=== PATIENT | male | born 1955 | race Caucasian/White ===

== ENCOUNTER 2017-06-20 16:50 | Inpatient (IN) | payer OTHER, SELFPAY ==
--- NOTE | 2017-06-20 17:37 | RAD ---
PORTABLE CHEST 1 VIEW: Date: 06/20/17 Time: 1719 hours HISTORY: Chest pain. FINDINGS: Comparison made with exam of 01/13/17. There is continued elevation of the right hemidiaphragm. The heart size is prominent, but stable. Th e lungs are well expanded without confluent areas of consolidation, pneumothorax, or pleural effusio ns. There is no evidence of sagrario pulmonary edema. There are degenerative changes in the spine. IMPRESSION: No acute process. POS: [facility]
[2017-06-20] MEDS ORDERED: Nitroglycerin 2% Ointment 1 INCH/1 GM Packet ONE (17:48)
[2017-06-20] MEDS ORDERED: Aspirin 81 mg Enteric Coated Tablet ONE (17:48)
[2017-06-20 17:51] LABS: Troponin I Less than 0.010 ng/mL (< 0.028)
[2017-06-20 17:53] LABS: ALT (SGPT) 42 U/L (8-55); AST (SGOT) 102 U/L (5-34); Alkaline Phosphatase 214 U/L (40-150); Anion Gap 16 mmol/L (10-20); BUN (Urea Nitrogen) 26 mg/dL (8.4-25.7); Bilirubin, Total 0.8 mg/dL (0.2-1.2); CK (CPK) 42 U/L (30-200); Calc. Creatinine Clearance 0 mL/min (70-130); Calcium 9.5 mg/dL (7.8-10.44); Carbon Dioxide 23 mmol/L (23-31); Chloride 102 mmol/L (98-107); Estimated GFR-MDRD 45; Globulin 3.6 g/dL (2.4-3.5); Protein, Total 7.2 g/dL (5.8-8.1)
[2017-06-20 18:03] LABS: #Eosinphils 0.3 thou/uL (0.0-0.7); #Lymphocytes 2.3 thou/uL (1.20-3.40); #Neutrophils 6.6 thou/uL (1.40-6.50); %Basophils 0.3 % (0.0-1.0); %Eosinophils 3.2 % (0.0-10.0); %Monocytes 9.5 % (0.0-10.0); Hematocrit 38.4 % (42.0-52.0); Mean Platelet Volume 7.1 fL (7.4-10.4); Red Blood Cell (RBC) Count 4.47 mill/uL (4.70-6.10); White Blood Cell (WBC) Count 10.2 thou/uL (4.8-10.8)
[2017-06-20 18:18] LABS: Bilirubin Small (Negative); Blood, Urine Negative (Negative); Glucose, Urine (Dipstick) Negative (Negative); Ketone, Urine Negative (Negative); Nitrite Negative (Negative); Protein, Urine (Dipstick) 30 mg/dL (Neg-Trace)
[2017-06-20 18:23] LABS: Bacteria/HPF None Seen HPF (None Seen); Hyaline Casts/LPF 0-3 HYALINE CAST LPF (0-3 Hyaline); RBC/HPF 0-3 HPF (0-3); Squamous Epithelial 0-3 HPF (0-3); WBC/HPF 0-3 HPF (0-3)
[2017-06-20] MEDS ORDERED: Morphine 2 MG/ML SYRINGE SLOW IVP PRN (19:11)
[2017-06-20] MEDS ORDERED: Dextrose 50% Abboject 50 ML SYRINGE SLOW IVP PRN (19:56)
[2017-06-20] MEDS ORDERED: HumaLOG 300 UNITS/3 ML VIAL SC PRN (19:56)
[2017-06-20] MEDS ORDERED: Dextrose 5% in Water 1,000 ML IV PRN (19:56)
[2017-06-20] MEDS ORDERED: Bisacodyl 10 MG SUPP PR PRN (19:56)
[2017-06-20] MEDS ORDERED: Calcium Carbonate 500 MG ChewTAB PO PRN (19:56)
[2017-06-20] MEDS ORDERED: Ondansetron ODT 4 MG TAB SL PRN (19:56)
[2017-06-20] MEDS ORDERED: Ondansetron HCl/PF 4 MG/2 ML Vial IVP PRN ×2 (19:56)
[2017-06-20] MEDS ORDERED: Acetaminophen 650 MG Suppository PR PRN (19:56)
[2017-06-20] MEDS ORDERED: Acetaminophen 325 MG TAB PO PRN (19:56)
[2017-06-20 20:45] LABS: Troponin I Less than 0.010 ng/mL (< 0.028)
[2017-06-20] MEDS: Carvedilol 3.125 MG TAB PO SCH (21:00)
[2017-06-20] MEDS: Nitroglycerin 2% Ointment 1 INCH/1 GM Packet TOP SCH (21:00)
[2017-06-20] MEDS: Famotidine 20 MG TAB PO SCH (21:00)
[2017-06-20] MEDS: Sodium Chloride 0.9% 1,000 ML IV SCH (21:00)
[2017-06-20] MEDS: HYDROcodone/Acetaminophen 5/325 mg Tablet PO PRN (22:10)
[2017-06-20 23:25] LABS: Troponin I Less than 0.010 ng/mL (< 0.028)
--- NOTE | 2017-06-21 00:18 | HP ---
CHIEF COMPLAINT: Chest pain. HISTORY OF PRESENT ILLNESS: This is a 61-year-old pleasant gentleman who was apparently in usual surgical specialty center at [facility], at 3:00 p.m. this afternoon when he was post-lunch resting in his chair when he had c hest pain, which was like a pressure type sensation across his chest, intensity about 3/10 and laste d about for an hour. He says that it was not associated with nausea, vomiting or diaphoresis, but h e had some shortness of breath. He was concerned and he came into the hospital for further evaluati on and treatment. No fever, no chills, no diarrhea or dysuria. PAST MEDICAL HISTORY: Significant for diabetes, hypertension, and obesity. ALLERGIES: PENICILLIN. MEDICATIONS: Include metformin, lisinopril, Coreg, levothyroxine, liothyronine, lovastatin, and Cor eg. PAST SURGICAL HISTORY: Significant for nasal tumors x2. SOCIAL HISTORY: Denies smoking, drinking or recreational drugs. FAMILY HISTORY: Negative for diabetes and hypertension. REVIEW OF SYSTEMS: Significant for chest pain, otherwise no fever, no chills, no headache, no appet ite, no hearing loss, no latencies. No cough, no diarrhea, dysuria or polyuria. No memory or mood changes. No neck pain. PHYSICAL EXAMINATION: VITAL SIGNS: The patient's blood pressure is 150/89, pulse is 91, respirations 18, temperature afeb rile. GENERAL: The patient is lying in bed in no apparent distress. HEENT: Atraumatic, normocephalic. Pupils equally round, react to light. Extraocular movements int act. Mucous membranes moist. NECK: Supple. No JVD. CHEST: Breath sounds heard. No rales or rhonchi. HEART: S1, S2 normal. No murmurs or gallops. ABDOMEN: Soft. EXTREMITIES: No cyanosis, clubbing or edema. Distal pulses present. NEUROLOGIC: Alert, awake, oriented. No cranial deficits. No sensorimotor deficits. LABORATORY DATA: EKG shows no ST-T wave changes. Lipase is 17, hemoglobin is 12. WBC is 10. Trop onin 0.01. Potassium is 4, creatinine is 1.5, and AST is 102. Chest x-ray negative. ASSESSMENT AND PLAN: 1. Chest pain. We will do echocardiogram, trend troponins. Cardiology consult. Morphine p.r.n. f or pain. 2. Diabetes mellitus. We will put him on insulin sliding scale. 3. Hypertension. Coreg and p.r.n. hydralazine. 4. Hypothyroidism. We will continue home medications. 5. Obesity. He has been counseled. 6. Sequential compression devices for deep venous thrombosis prophylaxis. I will do the stress valarie t, monitor results, work with Cardiology, and do the need for.
[2017-06-21] MEDS: Nitroglycerin 2% Ointment 1 INCH/1 GM Packet TOP SCH (04:32)
[2017-06-21 05:15] LABS: #Eosinphils 0.2 thou/uL (0.0-0.7); #Lymphocytes 1.4 thou/uL (1.20-3.40); #Monocytes 0.5 thou/uL (0.11-0.59); %Basophils 0.5 % (0.0-1.0); %Eosinophils 2.4 % (0.0-10.0); %Lymphocytes 19.2 % (21.0-51.0); %Monocytes 7.4 % (0.0-10.0); Hematocrit 35.8 % (42.0-52.0); Mean Platelet Volume 7.1 fL (7.4-10.4); Red Blood Cell (RBC) Count 4.12 mill/uL (4.70-6.10); White Blood Cell (WBC) Count 7.1 thou/uL (4.8-10.8)
[2017-06-21 05:27] LABS: ALT (SGPT) 267 U/L (8-55); AST (SGOT) 357 U/L (5-34); Alkaline Phosphatase 286 U/L (40-150); Anion Gap 10 mmol/L (10-20); BUN (Urea Nitrogen) 25 mg/dL (8.4-25.7); Bilirubin, Total 3.2 mg/dL (0.2-1.2); Calc. Creatinine Clearance 92 mL/min (70-130); Calcium 9.3 mg/dL (7.8-10.44); Carbon Dioxide 30 mmol/L (23-31); Chloride 99 mmol/L (98-107); Estimated GFR-MDRD 44; Globulin 3.2 g/dL (2.4-3.5); Protein, Total 6.6 g/dL (5.8-8.1)
[2017-06-21] MEDS: Levothyroxine Sodium 100 MCG TAB PO SCH (05:49)
[2017-06-21] MEDS: Aspirin 325 MG TAB PO SCH (08:15)
[2017-06-21] MEDS: Famotidine 20 MG TAB PO SCH ×2 (08:15→20:45)
[2017-06-21] MEDS: Carvedilol 3.125 MG TAB PO SCH ×2 (12:05→20:45)
--- NOTE | 2017-06-21 13:15 | PDOC.PN ---
- Subjective Encounter Start Date: 06/21/17 Encounter Start Time: 13:13 had sharp back pain and e/o vomiting in night feels better had stress this am no f/c - Objective MAR Reviewed: Yes Vital Signs & Weight: Vital Signs (12 hours) Temp Pulse Resp BP BP Pulse Ox 06/21/17 12:00 71 16 178/88 H 95 06/21/17 08:10 99.2 F 78 18 06/21/17 07:45 99.2 F 78 18 159/79 H 93 L 06/21/17 03:50 99.1 F 74 20 159/75 H 96 Weight Weight 301 lb I&O: 06/20/17 06/21/17 06/22/17 06:59 06:59 06:59 Intake Total 996 Output Total 500 Balance 496 Result Diagrams: 06/21/17 03:57 06/21/17 03:57 Additional Labs: Accuchecks 06/20/17 20:22 POC Glucose 139 H Phys Exam - Physical Examination Constitutional: NAD HEENT: PERRLA Neck: no JVD Respiratory: no wheezing Cardiovascular: no significant murmur Gastrointestinal: non-tender Musculoskeletal: pulses present Neurological: moves all 4 limbs Psychiatric: A&O x 3 Dx/Plan (1) Chest pain Code(s): R07.9 - CHEST PAIN, UNSPECIFIED Status: Acute (2) Elevated LFTs Code(s): R79.89 - OTHER SPECIFIED ABNORMAL FINDINGS OF BLOOD CHEMISTRY Status : Acute (3) DM type 2 (diabetes mellitus, type 2) Status: Chronic (4) HTN (hypertension) Code(s): I10 - ESSENTIAL (PRIMARY) HYPERTENSION Status: Chronic Qualifiers: (5) Hypothyroidism Code(s): E03.9 - HYPOTHYROIDISM, UNSPECIFIED Status: Chronic Qualifiers: (6) Morbid obesity with BMI of 45.0-49.9, adult Code(s): E66.01 - MORBID (SEVERE) OBESITY DUE TO EXCESS CALORIES; Z68.42 - BODY MASS INDEX (BMI) 45.0-49.9, ADULT Status: Chronic - Plan * f/u lft and us abd * f/u stress result * card and gi rec's awaited
--- NOTE | 2017-06-21 14:19 | CON ---
DATE OF CONSULTATION: 06/21/2017 REASON FOR CONSULTATION: Chest pain. HISTORY OF PRESENT ILLNESS: Mr. White is a pleasant 61-year-old white gentleman, who comes to the [facility] for chest pain. He was sitting at home reading a book and felt sudden onset of chest tightn ess in the mid sternal area; it radiated to the right chest. He waited about an hour and a half bef ore decided to come into the hospital. By that time, the pain was better, and by the time he got he re, the pain was pretty much gone. He was admitted and ruled out with negative enzymes, and a stres s test was done earlier today, results are still pending. Currently, he remains chest pain free. Dayna tomlinson has had cardiac evaluations in the past. He has been told he might have had heart failure. Sever al years ago, he saw Dr. Dodge here in the office, unclear of exactly what happened; those record s have been purged since. Currently, he is doing quite well. PAST MEDICAL HISTORY: 1. Type 2 diabetes. 2. Hypertension. 3. Obesity. ALLERGIES: PENICILLIN. OUTPATIENT MEDICATIONS: Include: 1. Fish oil. 2. Carvedilol 6.25 mg b.i.d. 3. Lutein. 4. Vitamin. 5. PreserVision 6. Aspirin 325 a day. 7. Lovastatin 20 mg a day. 8. Ekhyiweneytc52.5 mcg a day. 9. Synthroid 200 mcg daily. 10. Lasix 80 mg a day. 11. Metformin 1000 mg b.i.d. 12. Potassium chloride 10 mEq b.i.d. ALLERGIES: PENICILLIN. SOCIAL HISTORY: No alcohol, tobacco, or drugs. PAST SURGICAL HISTORY: Removal nasal tumors twice in the past. FAMILY HISTORY: No early coronary artery disease. REVIEW OF SYSTEMS: Negative unless stated in the history of present illness. PHYSICAL EXAMINATION: VITAL SIGNS: Temperature 99.2, pulse 78, respiratory rate 18, satting at 95% on room air, blood pre ssure 178/88. GENERAL: Awake, alert, oriented x3, in no distress. HEENT: Normocephalic, atraumatic. NECK: Supple. LUNGS: Clear. CARDIOVASCULAR: S1, S2, no S3 or S4. No murmurs or rubs. ABDOMEN: Soft. Positive bowel sounds. EXTREMITIES: 1+ edema. SKIN: Warm and dry. LABORATORY WORK: Reviewed. White count of 10, hemoglobin of 12, hematocrit 38, platelet count of 2 30. Chemistries showed sodium of 137, BUN of 26, creatinine 1.5, GFR 45, glucose was 119. Troponin has been negative, undetectable actually x3; albumin of 3.6. His alkaline phosphatase was 214 on admission, up to 286, and his AST and ALT have increased since admission from 102 and 42 to 357 and 267 respectively. Total bilirubin now at 3.2; on admission, it was 0.8. Lipase was normal. UA was unremarkable. EKG was reviewed, nonspecific ST changes. Chest x-ray was unremarkable. ASSESSMENT AND PLAN: 1. Chest pain: We will wait for results of stress test to see if this is related to cardiac ischem ia. However, I doubt it. His presentation was born right-sided and he has abnormal LFTs. We will see what echocardiogram shows as well. 2. Agree with right upper quadrant ultrasound to make sure it is not a liver pathology or biliary p athology. 3. Further recommendations per results of abdominal testing and stress testing.
[2017-06-21 14:33] LABS: ALT (SGPT) 266 U/L (8-55); AST (SGOT) 232 U/L (5-34); Alkaline Phosphatase 320 U/L (40-150); Bilirubin, Direct 3.7 mg/dL (0.1-0.3); Bilirubin, Total 4.7 mg/dL (0.2-1.2); Protein, Total 6.7 g/dL (5.8-8.1)
[2017-06-21] MEDS: hydrALAZINE 20 MG/ML VIAL SLOW IVP PRN (16:39)
--- NOTE | 2017-06-21 16:44 | RAD ---
FRONTAL VIEW ABDOMINAL RADIOGRAPH SERIES KUB 06/21/17 INDICATION: Abdominal pain. FINDINGS: The upper abdomen and lung bases are excluded from view limiting assessment. Bowel gas pattern is no nspecific with retained fecal material in the colon present. Several round densities in the pelvis i ndicate phleboliths. Diffuse osseous degenerative change is present. IMPRESSION: Nonspecific bowel gas pattern with moderate retained fecal material in the colon. POS: [facility]
[2017-06-21] MEDS: Sodium Chloride 0.9% 1,000 ML IV SCH (16:46)
--- NOTE | 2017-06-21 17:46 | ULT ---
ABDOMINAL ULTRASOUND: 06/21/17 HISTORY: Elevated liver function tests. FINDINGS: There is a shadowing echogenic focus seen in the neck of the gallbladder measuring 2.4 cm. The gallb ladder wall is thickened measuring 0.7 cm. No pericholecystic fluid is identified. The gallbladder i s distended with diameter of approximately 5.7 cm. The common duct is normal in caliber measuring 0. 56 cm. No intrahepatic biliary ductal dilatation is appreciated. The pancreas and abdominal aorta are obscured by bowel gas. The IVC is also not well seen. The liver is enlarged measuring 18.8 cm in length. Portions of the liver are not well seen due to sh adowing from ribs. No focal hepatic lesion is seen on this exam. There is a focal defect at the junction of the mid portion superior pole right kidney probably relat ed to junctional parenchymal defect. Right kidney otherwise has a normal sonographic appearance and measures 13.8 cm in length. The left kidney measures 12.4 cm in length. There is an anechoic structu re in the inferior pole left kidney measuring 3.3 cm demonstrating characteristics most consistent w ith a renal cyst. There is a tiny echogenic focus seen in the inferior pole left kidney which could be related to prominent vessel or very tiny nonobstructing renal calculus. This measures less than 2 mm. The spleen demonstrates a normal sonographic appearance. IMPRESSION: 1. Large calculus in the neck of the gallbladder measuring 2.3 cm with associated gallbladder w all thickening. There is no pericholecystic fluid, but given gallbladder wall thickening, findings m ay be attributable to cholecystitis. Clinical correlation is recommended. 2. Suboptimal evaluation of the entire liver due to shadowing from ribs. No obvious focal hepat ic lesion is seen. 3. Left renal cyst. POS: [facility]
[2017-06-21] MEDS: HYDROcodone/Acetaminophen 5/325 mg Tablet PO PRN (21:17)
--- NOTE | 2017-06-21 23:30 | CON ---
DATE OF CONSULTATION: 06/21/2017 REFERRING PHYSICIAN: Dr. Mondragon, [facility]. REASON FOR CONSULTATION: Chest pain, nausea, vomiting, and abnormal liver function tests. HISTORY OF PRESENT ILLNESS: Mr. Rambo White is a very pleasant 61-year-old male with histo ry of hypertension, diabetes mellitus, and hypothyroidism. He has also history of hyperlipidemia an d taking lovastatin 20 once a day. The patient does see Dr. Tami Morataya on a regular basis. The p atient developed chest pain last night after supper. The pain is across the anterior chest and also he felt the pain going to the back. He also had briefly some heartburn, indigestion. He felt sick to stomach and vomited one time. After an hour, also, the pain resolved. The patient is very acti ve. He has no history of an exertional chest tightness or dyspnea. The patient had seen Dr. Charlene osborne 5 years ago for a routine cardiology evaluation. Apparently, he underwent evaluation and was james d to have no cardiac problems. The patient had not seen Dr. Dodge over the last several years. The patient has no prior history of chest pain. The patient tells me he had a nuclear stress testin g today and when he was undergoing the stress test he had the same pain briefly. The patient denies any right upper quadrant abdominal pain, epigastric abdominal pain. There is no history of any aci d reflux before. No history of dysphagia or odynophagia. At the present time, he is actually total ly asymptomatic. The patient pending to have an abdominal sonogram and an echocardiogram. On admis gaby, he was found to have elevated LFTs. The LFTs shows bilirubin 3.2, AST 357, ALT 267, alkaline phosphatase 286. The patient has no prior history of liver disease. He does see Dr. Morataya on a re gular basis and was told to have abnormal LFTs. The patient was hospitalized here 5 months ago foll owing a fall and fracture of the left humerus. Apparently, he developed hypoglycemia with blood sug ar dropped as low as 38 and . He was seen by Dr. Pressley at that time for his left humerus f racture and was treated conservatively. The patient has been seen Dr. Pressley off and on and he s ays the fracture is healing except he has limited movement of left arm. There are no more pain over the left arm. His bowel movements are regular. No history of hematochezia or melena. No other re levant history. ALLERGIES: None. SOCIAL HISTORY: The patient is single. He does not smoke or drink alcohol. ALLERGIES: PENICILLIN. SURGERIES: Status post removal of nasal tumor x2 many years ago. FAMILY HISTORY: Sister had gallstones removed. MEDICAL ILLNESSES: 1. Diabetes mellitus. 2. Hypertension. 3. Hypothyroidism. 4. Obesity. 5. Hyperlipidemia. MEDICATIONS: List reviewed. REVIEW OF SYSTEMS: A 10-point system reviewed. Central nervous system: No history of syncope, no TIA, no seizure disorder, no history of chronic headache. Respiratory system: No history of chroni c cough, hemoptysis, dyspnea. Cardiovascular: Chest pain last night has resolved. No palpitations , no dyspnea on exertion, no orthopnea or PND. Genitourinary: No dysuria, hematuria or frequency o f urination. Musculoskeletal: Unremarkable. Endocrine: Unremarkable. Hematological: Unremarkab le. Neuro/psychiatric: Unremarkable PHYSICAL EXAMINATION: GENERAL: The patient is obese, appears comfortable. He is awake, alert, oriented to time, place an d person. VITAL SIGNS: Stable. He is afebrile. Pulse is 71, blood pressure 178/80. HEENT: Conjunctivae clear. NECK: Supple. No adenitis or thyromegaly noted. CARDIOVASCULAR: First and second heart sounds normal. LUNGS: Clear to auscultation. ABDOMEN: Soft. Abdomen is nontender. Even on deep palpation, he has no tenderness over the right upper quadrant epigastric area. There is no rebound or guarding. No organomegaly. EXTREMITIES: Reveal no edema. LABORATORY DATA: Shows a sodium 135, potassium 4.1, chloride 99, bicarb 30, BUN is 25, creatinine 1 .59, glucose 135, calcium 9.3, bilirubin 3.2, AST 357, ALT 267, alkaline phosphatase 286, total prot ein 6.6, albumin 3.4. CBC is normal. Hemoglobin is slightly low at 11.7. WBC is 7100, MCV 86.8, p latelet count 209,000, polymorphs 70, lymphocytes 19. CLINICAL IMPRESSION: 1. A 61-year-old obese male with chest pain across the anterior chest and also . He did have some heartburn, indigestion briefly. He had vomiting one time. The patient is totally as ymptomatic. 2. Abnormal LFTs, etiology unclear. It is very much possible that the patient could have gallstone s and possibly . Other possibilities could be due to his medication. 3. Diabetes mellitus. 4. Hypertension. 5. Hypothyroidism. 6. Obesity. 7. Fractured left humerus in December 2016 after a fall . RECOMMENDATIONS: 1. Abdominal sonogram. 2. Hold off lovastatin. 3. Follow up LFTs. 4. Obtain hepatitis markers. 5. The patient had a colonoscopy and I have advised the patient to have a colonoscopy as outpatient .
[2017-06-22 04:54] LABS: #Eosinphils 0.3 thou/uL (0.0-0.7); #Monocytes 0.9 thou/uL (0.11-0.59); #Neutrophils 4.8 thou/uL (1.40-6.50); %Basophils 0.3 % (0.0-1.0); %Eosinophils 4.3 % (0.0-10.0); %Lymphocytes 14.3 % (21.0-51.0); %Monocytes 12.4 % (0.0-10.0); Hematocrit 36.9 % (42.0-52.0); Mean Platelet Volume 6.9 fL (7.4-10.4); Red Blood Cell (RBC) Count 4.25 mill/uL (4.70-6.10); White Blood Cell (WBC) Count 6.9 thou/uL (4.8-10.8)
[2017-06-22 05:13] LABS: ALT (SGPT) 185 U/L (8-55); AST (SGOT) 112 U/L (5-34); Alkaline Phosphatase 277 U/L (40-150); Anion Gap 12 mmol/L (10-20); BUN (Urea Nitrogen) 19 mg/dL (8.4-25.7); Bilirubin, Total 4.4 mg/dL (0.2-1.2); Calc. Creatinine Clearance 104 mL/min (70-130); Calcium 9.6 mg/dL (7.8-10.44); Carbon Dioxide 25 mmol/L (23-31); Chloride 103 mmol/L (98-107); Estimated GFR-MDRD 51; Globulin 3.3 g/dL (2.4-3.5); Protein, Total 6.6 g/dL (5.8-8.1)
[2017-06-22] MEDS: Levothyroxine Sodium 100 MCG TAB PO SCH (06:01)
[2017-06-22] MEDS: Famotidine 20 MG TAB PO SCH ×2 (10:30→20:46)
[2017-06-22] MEDS: Carvedilol 3.125 MG TAB PO SCH ×2 (10:31→20:46)
[2017-06-22] MEDS: Aspirin 325 MG TAB PO SCH (10:31)
--- NOTE | 2017-06-22 10:45 | PDOC.PN ---
- Subjective Encounter Start Date: 06/22/17 Encounter Start Time: 10:30 Subjective: FEEL BETTER - Objective MAR Reviewed: Yes Vital Signs & Weight: Vital Signs (12 hours) Temp Pulse Resp BP BP Pulse Ox 06/22/17 08:00 99.3 F 74 16 06/22/17 07:18 99.3 F 74 16 147/74 H 95 06/22/17 04:16 99.3 F 74 16 141/73 H 92 L 06/22/17 01:23 95 06/21/17 23:07 98.9 F 82 15 139/79 95 Weight Weight 301 lb I&O: 06/21/17 06/22/17 06/23/17 06:59 06:59 06:59 Intake Total 996 240 Output Total 500 Balance 496 240 Result Diagrams: 06/22/17 03:54 06/22/17 03:54 Additional Labs: Accuchecks 06/21/17 06/21/17 21:11 16:54 POC Glucose 158 H 135 H Phys Exam - Physical Examination Constitutional: NAD HEENT: PERRLA, moist MMs Neck: supple, full ROM Respiratory: no rhonchi, clear to auscultation bilateral Cardiovascular: RRR, no significant murmur Gastrointestinal: soft, non-tender OBESE Musculoskeletal: no edema Neurological: non-focal, moves all 4 limbs Psychiatric: normal affect, A&O x 3 Skin: no rash Dx/Plan (1) Chest pain Code(s): R07.9 - CHEST PAIN, UNSPECIFIED Status: Acute (2) Elevated LFTs Code(s): R79.89 - OTHER SPECIFIED ABNORMAL FINDINGS OF BLOOD CHEMISTRY Status : Acute (3) DM type 2 (diabetes mellitus, type 2) Status: Chronic (4) Dyslipidemia Code(s): E78.5 - HYPERLIPIDEMIA, UNSPECIFIED Status: Chronic (5) HTN (hypertension) Code(s): I10 - ESSENTIAL (PRIMARY) HYPERTENSION Status: Chronic Qualifiers: - Plan NEGATIVE HEP PANEL, OUTPATIENT COLONOSCOPY PER GI, -: IF STRESS NEGATIVE D/C TO HOME WITH BP MEDS PER CARDIOLOGY * .
--- NOTE | 2017-06-22 10:57 | NM ---
NUCLEAR MEDICINE CARDIAC STRESS TEST WITH EJECTION FRACTION: HISTORY: Chest pain. COMPARISON: None. TECHNIQUE: Stress and rest were performed with the intravenous administration of 28.3 and 33 mCi Technetium 99m sestamibi. The exam was performed using nuclear adenosine stress test protocol. Indeterminate EKG changes. FINDINGS: There is small volume scar inferior wall extending to the septum. No evidence of ischemia. There is dyskinesia of the inferior wall and septum. Ejection fraction is calculated at 52%. IMPRESSION: 1. Small volume scar of the inferior wall and septum with dyskinesia. 2. Ejection fraction 52%. POS: [facility]
[2017-06-22] MEDS: hydrALAZINE 20 MG/ML VIAL SLOW IVP PRN (14:20)
--- NOTE | 2017-06-22 14:30 | PDOC.CTH ---
Cardiology Progress Note - Subjective He had his stress test and it showed no evidence of ischemia. He has not had nay more episodes of chest pain. - Objective Vital Signs Temp Pulse Resp BP BP BP Pulse Ox 06/22/17 14:20 72 183/94 H 06/22/17 11:24 98.5 F 72 16 179/85 H 96 06/22/17 08:00 99.3 F 74 16 06/22/17 07:18 99.3 F 74 16 147/74 H 95 06/22/17 04:16 99.3 F 74 16 141/73 H 92 L Weight 301 lb 06/21/17 06/22/17 06/23/17 06:59 06:59 06:59 Intake Total 996 240 Output Total 500 Balance 496 240 - Physical Examination General/Neuro: alert & oriented x3, NAD Neck: no JVD present Lungs: CTA, unlabored respirations Heart: RRR Abdomen: NT/ND Extremities: + edema B (1+) - Telemetry Telemetry Rhythm: nsr - Labs Result Diagrams: 06/22/17 03:54 06/22/17 03:54 Troponin/CKMB CK-MB (CK-2) 0.8 ng/mL (0-6.6) 06/20/17 17:09 Troponin I Less than 0.010 ng/mL (< 0.028) 06/20/17 22:47 - Assessment/Plan 1. Chest pain. 2. Acute cholecystitis PLAN: - He may proceed with planned surgery. - Reasonable candidate for anesthesia given no ischemia on MPI and normal LV function.
[2017-06-22] MEDS ORDERED: Acetaminophen 325 MG TAB PO PRN (16:12)
--- NOTE | 2017-06-22 17:01 | PRG ---
HOSPITAL VISIT NOTE DATE OF SERVICE: 06/22/2017 SUBJECTIVE: This is a 61-year-old male, hospitalized with chest pain. He underwent cardi ology workup and found to have a negative stress testing. The patient's liver functions were elevat ed. The abdominal sonogram shows no gallstones. The patient is symptom free at the present time. Has no abdominal pain, no nausea, no vomiting. Based on the history and findings of abnormal LFTs a nd gallstones, I believe most likely he has symptoms from biliary tract disease. At present, he is asymptomatic. OBJECTIVE: GENERAL: Appears comfortable. VITAL SIGNS: He is afebrile. Pulse is 72 and blood pressure 179/85. CARDIOVASCULAR SYSTEM: First and second heart sounds are normal. LUNGS: Clear to auscultation. ABDOMEN: Soft to palpate. No organomegaly. No tenderness. No masses. LABORATORY DATA: CBC: WBC 6900, hemoglobin 11.9, hematocrit 36.9 and platelet count is 227,000. H is liver function tests still remained evaluated with a bilirubin of 4.4. AST is 112, ALT 185 and a lkaline phosphatase 277. RECOMMENDATIONS: Surgical consultation. I believe he mostly needs a laparoscopic cholecystectomy w ith intraoperative cholangiogram. If the cholangiogram showed abnormal findings, we will need ERCP.
[2017-06-23] MEDS: Ibuprofen 600 MG TAB PO PRN ×2 (00:47→21:33)
--- NOTE | 2017-06-23 01:55 | CON ---
DATE OF CONSULTATION: 06/22/2017 REASON FOR CONSULTATION: Cholelithiasis and cholecystitis. HISTORY OF PRESENT ILLNESS: Mr. White is a 61-year-old man who came to the emergency room for chest pain. He states that he was at rest, sitting in his chair at home when he suddenly had the onset o f lower chest pain on both sides, which was fairly severe. He did not immediately seek help, but ov er an hour later when his roommate came home, he was still having the pain, so he decided to come in to the emergency room. He was admitted to telemetry and has been evaluated by the Cardiology and th ey did not feel that the pain was cardiac in origin. The pain did go away at some point, although h e cannot say what made the pain go away. He has had one recurrent episodes during his stress test, but not as severe. He did not have any nausea, vomiting, fevers, or chills during his episode. He denies any history of jaundice or icterus, due to his negative cardiac workup, the decision was made to look at his gallbladder and an ultrasound did show that he had a stone in the neck of his gallbl adder and some pericholecystic fluid and edema of the gallbladder wall. So General Surgery was cons ulted. His white count is normal. His LFTs are mildly elevated with a total bilirubin of 4.4, whic h is down slightly from yesterday. AST and ALT of 112 also down from yesterday and 185 and an alkal ine phosphatase of 277, which is also declining. Lipase was normal at 17. Abdominal ultrasound per formed yesterday showed a large calculus in the neck of the gallbladder with associated gallbladder wall thickening, no biliary dilatation with bile duct measuring 0.56 cm. PAST MEDICAL HISTORY: Hypertension, diabetes. ALLERGIES: He has an allergy to PENICILLIN, but does not know what his reaction is. OUTPATIENT MEDICATIONS: Include metformin, lisinopril, Coreg, Synthroid, liothyronine, lovastatin. PAST SURGICAL HISTORY: Nasal surgery. SOCIAL HISTORY: He does not smoke, drink, or use illicit drugs. FAMILY HISTORY: Noncontributory. REVIEW OF SYSTEMS: Ten-system review of systems is negative except per HPI. PHYSICAL EXAMINATION: VITAL SIGNS: T-max 99.7, currently afebrile, pulse is 85, blood pressure 178/104, respirations 16, and 97% saturated on room air. GENERAL: Reveals a healthy appearing gentleman, in no acute distress. HEENT: Unremarkable, although he does have a yellowish cast skin around his eyes. His sclerae are not icteric. NECK: Supple, without lymphadenopathy or definite thyroid nodules. HEART: Regular in its rate and rhythm without murmurs, rubs, or gallops. LUNGS: Clear to auscultation bilaterally. ABDOMEN: Soft and nondistended. He has no tenderness to palpation in all four quadrants of his abd omen. No palpable masses or hernias. EXTREMITIES: Warm and well perfused without significant edema. He has moderate bilateral ankle ines ma, which is slightly worse on the right side. He states that this is dramatically improved from ea rlier when he had such pronounced swelling on the right that he had sores developed. NEUROLOGIC: No focal deficits. PSYCHIATRIC: Alert, oriented, and appropriate. LABORATORY DATA AND X-RAY FINDINGS: Labs are as per HPI. His creatinine is mildly elevated at 1.41 , which is down somewhat from yesterday. Electrolytes are unremarkable and white count is normal. ASSESSMENT: Cholelithiasis and cholecystitis. Cardiac workup was negative. Although, the patient does have some subjective chest pain with his stress test, there were no abnormalities or changes on his exam and his troponins have all been less than 0.01. Given the long duration of his chest pain prior to coming into the emergency room, I would expect an elevation in his troponin if this had be en cardiac in origin. I have recommended that the patient proceed with laparoscopic cholecystectomy with intraoperative cholangiogram. If his LFTs start going up again, he may need to get an ERCP fi rst. Dr. Perla has already seen the patient, assuming, however, that his LFTs continued to decl ine, we will proceed with laparoscopic cholecystectomy with cholangiogram first. If any bile duct o bstruction is seen then ERCP will be necessary. The inherent risks of surgery were discussed includ ing bleeding, infection, risks of anesthesia, damage managed by structures including bowel, liver, a nd bile duct, need for open procedures or for additional procedures. He understands and accepts the se thrills and wishes to proceed. 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
[2017-06-23] MEDS: Levothyroxine Sodium 100 MCG TAB PO SCH (05:16)
[2017-06-23 06:33] LABS: #Eosinphils 0.1 thou/uL (0.0-0.7); #Lymphocytes 0.9 thou/uL (1.20-3.40); #Monocytes 0.8 thou/uL (0.11-0.59); #Neutrophils 4.2 thou/uL (1.40-6.50); %Basophils 0.8 % (0.0-1.0); %Monocytes 12.8 % (0.0-10.0); Hematocrit 35.6 % (42.0-52.0); Mean Platelet Volume 7.1 fL (7.4-10.4); White Blood Cell (WBC) Count 5.9 thou/uL (4.8-10.8)
[2017-06-23 06:53] LABS: ALT (SGPT) 128 U/L (8-55); AST (SGOT) 54 U/L (5-34); Alkaline Phosphatase 284 U/L (40-150); Anion Gap 13 mmol/L (10-20); BUN (Urea Nitrogen) 17 mg/dL (8.4-25.7); Bilirubin, Total 3.4 mg/dL (0.2-1.2); Calc. Creatinine Clearance 107 mL/min (70-130); Calcium 9.3 mg/dL (7.8-10.44); Carbon Dioxide 22 mmol/L (23-31); Chloride 99 mmol/L (98-107); Estimated GFR-MDRD 53; Globulin 3.3 g/dL (2.4-3.5); Lipase 12 U/L (8-78); Protein, Total 6.5 g/dL (5.8-8.1)
[2017-06-23] MEDS ORDERED: Fentanyl 100 MCG/2 ML VIAL ONE ×2 (07:46)
[2017-06-23] MEDS: Carvedilol 3.125 MG TAB PO SCH ×2 (08:46→21:34)
[2017-06-23] MEDS: Famotidine 20 MG TAB PO SCH ×2 (08:46→21:33)
[2017-06-23] MEDS: Aspirin 325 MG TAB PO SCH (08:46)
--- NOTE | 2017-06-23 12:25 | PDOC.PN ---
- Subjective Encounter Start Date: 06/23/17 Encounter Start Time: 12:23 Subjective: denied chest pain -: per RN. SVT last night - Objective Vital Signs & Weight: Vital Signs (12 hours) Temp Pulse Resp BP BP Pulse Ox 06/23/17 11:46 98.8 F 67 16 144/83 H 95 06/23/17 07:55 97.8 F 71 18 06/23/17 07:18 97.8 F 71 18 113/69 96 06/23/17 04:10 98.2 F 81 18 119/70 94 L 06/23/17 02:06 99.5 F 06/23/17 00:30 101.1 F H 92 20 163/88 H 93 L Weight Weight 297 lb 12.8 oz I&O: 06/22/17 06/23/17 06/24/17 06:59 06:59 06:59 Intake Total 240 240 Balance 240 240 Result Diagrams: 06/23/17 06:14 06/23/17 06:14 Additional Labs: Accuchecks 06/23/17 06/23/17 06/22/17 11:48 04:12 20:45 POC Glucose 117 H 121 H 151 H 06/22/17 16:50 POC Glucose 105 Phys Exam - Physical Examination HEENT: PERRLA, sclera anicteric Neck: no JVD Respiratory: no wheezing, no rales Gastrointestinal: soft, non-tender Musculoskeletal: no edema, pulses present Dx/Plan (1) Cholecystitis Code(s): K81.9 - CHOLECYSTITIS, UNSPECIFIED Status: Acute (2) Elevated LFTs Code(s): R79.89 - OTHER SPECIFIED ABNORMAL FINDINGS OF BLOOD CHEMISTRY Status : Acute (3) DM type 2 (diabetes mellitus, type 2) Status: Chronic (4) Hypothyroidism Code(s): E03.9 - HYPOTHYROIDISM, UNSPECIFIED Status: Chronic Qualifiers: (5) Acute kidney injury Code(s): N17.9 - ACUTE KIDNEY FAILURE, UNSPECIFIED Status: Acute (6) Hyponatremia Code(s): E87.1 - HYPO-OSMOLALITY AND HYPONATREMIA Status: Acute (7) Cholelithiasis Code(s): K80.20 - CALCULUS OF GALLBLADDER W/O CHOLECYSTITIS W/O OBSTRUCTION Status: Acute (8) SVT (supraventricular tachycardia) Code(s): I47.1 - SUPRAVENTRICULAR TACHYCARDIA Status: Acute - Plan cont current plan of care HR back to sinus- in the 60's. check mag level -: potassium low normal, IV potassium x 1 -: plan surgery, discussed with cardio, cleared for surgery -: bmp in AM * .
[2017-06-23] MEDS ORDERED: Potassium Chloride 20 MEQ in Premix Bag 1 BAG IVPB SCH (12:30)
[2017-06-23] MEDS ORDERED: Potassium Chloride 20 MEQ TAB PO SCH (14:00)
[2017-06-23] MEDS: Magnesium Sulfate 1 GM, IV Admixture Fee-Chemo 1 UNITS in Sodium Chloride 0.9% 100 ML IVPB SCH ×2 (14:04→15:41)
--- NOTE | 2017-06-23 17:16 | PDOC.CTH ---
Cardiology Progress Note - Subjective He is doing well. No chest pain, tightness, pressure, No lightheadedness, palpitations, syncope, presyncope. - Objective Vital Signs Temp Pulse Resp BP BP Pulse Ox 06/23/17 11:46 98.8 F 67 16 144/83 H 95 06/23/17 07:55 97.8 F 71 18 06/23/17 07:18 97.8 F 71 18 113/69 96 Weight 297 lb 12.8 oz 06/22/17 06/23/17 06/24/17 06:59 06:59 06:59 Intake Total 240 240 Balance 240 240 - Physical Examination General/Neuro: alert & oriented x3, NAD, other: Neck: no JVD present Lungs: unlabored respirations Heart: RRR Abdomen: NT/ND Extremities: + edema B (1+) - Telemetry Telemetry Rhythm: 3 min SVT, asymptomatic. - Labs Result Diagrams: 06/23/17 06:14 06/23/17 06:14 Troponin/CKMB CK-MB (CK-2) 0.8 ng/mL (0-6.6) 06/20/17 17:09 Troponin I Less than 0.010 ng/mL (< 0.028) 06/20/17 22:47 - Assessment/Plan 1. Chest pain. 2. Acute cholecystitis 3. SVT, asymptomatic. PLAN: - Will add BB to regimen before discharge - He may proceed with planned surgery. - Reasonable candidate for anesthesia given no ischemia on MPI and normal LV function.
--- NOTE | 2017-06-24 00:03 | PRG ---
DATE OF SERVICE: 06/23/2017 Mr. White was on the schedule for a laparoscopic cholecystectomy with cholangiogram today; however, he had a run of SVT last night, so his medicine team put his surgery on hold until Cardiology could be evaluate him again. I did get a call from his dependency program director late this afternoon stating that the patient had been cleared for surgery, but by that time, it was felt that his surgery would be too la te, so he was put on the schedule for tomorrow. The patient states that he is completely comfortabl e, not having any pain or nausea, and his abdominal exam is entirely benign. His LFTs are down some what. ASSESSMENT: Cholecystitis with elevated liver function tests. Plan is for laparoscopic cholecystec anya with intraoperative cholangiogram tomorrow. If his cholangiogram is abnormal, then Dr. Roger herr has already seen the patient and is ready to perform ERCP if indicated.
[2017-06-24 04:29] VITALS: BMI 39.4
[2017-06-24] MEDS: Carvedilol 3.125 MG TAB PO SCH ×2 (05:46→18:44)
[2017-06-24] MEDS: Levothyroxine Sodium 100 MCG TAB PO SCH (05:46)
[2017-06-24 06:25] LABS: Band 4 % (5-11); Hematocrit 37.4 % (42.0-52.0); Mean Platelet Volume 6.8 fL (7.4-10.4); Neutrophil 36 % (42-75); Red Blood Cell (RBC) Count 4.33 mill/uL (4.70-6.10); White Blood Cell (WBC) Count 5.2 thou/uL (4.8-10.8)
[2017-06-24 06:27] LABS: ALT (SGPT) 95 U/L (8-55); AST (SGOT) 31 U/L (5-34); Alkaline Phosphatase 252 U/L (40-150); Anion Gap 12 mmol/L (10-20); BUN (Urea Nitrogen) 28 mg/dL (8.4-25.7); Bilirubin, Total 1.5 mg/dL (0.2-1.2); Calc. Creatinine Clearance 75 mL/min (70-130); Calcium 9.9 mg/dL (7.8-10.44); Carbon Dioxide 25 mmol/L (23-31); Chloride 102 mmol/L (98-107); Estimated GFR-MDRD 36; Globulin 3.6 g/dL (2.4-3.5)
[2017-06-24] MEDS ORDERED: Levofloxacin 500 mg/D5W 100 ml Premix Bag ONE (07:17)
[2017-06-24] MEDS ORDERED: Iothalamate Meglumine 60% 50 ML VIAL FS ONE (07:18)
[2017-06-24] MEDS ORDERED: Bupivacaine PF 0.5% 30 ML VIAL ONE (07:18)
[2017-06-24] MEDS ORDERED: Fentanyl 250 MCG/5 ML VIAL ONE (07:27)
[2017-06-24] MEDS ORDERED: Lidocaine 2% w/Epinephrine 1:200K 20 ML VIAL ONE (08:01)
[2017-06-24] MEDS ORDERED: PHENYLEPHRINE-NS 100 MCG/ML 10 ML SYRINGE ONE (08:20)
[2017-06-24] MEDS ORDERED: Ketorolac Tromethamine 30 MG/ML VIAL ONE (08:20)
[2017-06-24] MEDS ORDERED: Propofol 200 MG/20 ML VIAL ONE (08:20)
[2017-06-24] MEDS ORDERED: Lidocaine 1% PF 5 ML VIAL ONE (08:20)
[2017-06-24] MEDS ORDERED: ePHEDrine/0.9% NaCl/PF SYRINGE 50 mg/10 ml ONE (08:20)
[2017-06-24] MEDS ORDERED: Glycopyrrolate 0.2 MG/ML 5 ML SYRINGE ONE (08:20)
[2017-06-24] MEDS ORDERED: Ondansetron HCl/PF 4 MG/2 ML Vial ONE (08:20)
[2017-06-24] MEDS ORDERED: Dexamethasone 20 MG/5 ML VIAL ONE (08:20)
[2017-06-24] MEDS: Aspirin 325 MG TAB PO SCH (10:50)
[2017-06-24] MEDS: Famotidine 20 MG TAB PO SCH ×2 (10:51→22:16)
[2017-06-24] MEDS ORDERED: Fentanyl 100 MCG/2 ML VIAL ONE (11:50)
[2017-06-24] MEDS ORDERED: Meperidine HCl/PF 25 MG/ML VIAL SLOW IVP PRN (12:11)
[2017-06-24] MEDS ORDERED: Promethazine HCl 25 MG/ML VIAL IM PRN (12:11)
[2017-06-24] MEDS ORDERED: HYDROmorphone 2 MG/ML VIAL SLOW IVP PRN (12:11)
[2017-06-24] MEDS ORDERED: Promethazine HCl 25 MG/ML VIAL SLOW IVP PRN (12:11)
[2017-06-24] MEDS ORDERED: Ondansetron HCl/PF 4 MG/2 ML Vial IVP PRN (12:11)
[2017-06-24] MEDS ORDERED: HYDROcodone/Acetaminophen 7.5/325 mg Tablet PO PRN (12:58)
[2017-06-24] MEDS ORDERED: Morphine 2 MG/ML SYRINGE SLOW IVP PRN ×3 (12:59)
[2017-06-24] MEDS: Sodium Chloride 0.9% 1,000 ML IV SCH ×2 (13:00→22:20)
[2017-06-24] MEDS ORDERED: Ondansetron HCl/PF 4 MG/2 ML Vial SLOW IVP PRN (13:00)
[2017-06-24] MEDS ORDERED: hydrALAZINE 20 MG/ML VIAL SLOW IVP PRN (13:51)
[2017-06-24] MEDS ORDERED: Amlodipine 5 MG TAB PO SCH (14:00)
--- NOTE | 2017-06-24 14:45 | PDOC.PN ---
- Subjective Encounter Start Date: 06/24/17 Encounter Start Time: 14:45 Patient seen and examined. No new complaints. No overnight events. s/p Lap Mya. BP high per RN - Objective MAR Reviewed: Yes Vital Signs & Weight: Vital Signs (12 hours) Temp Pulse Resp BP BP Pulse Ox 06/24/17 14:34 59 L 176/111 H 06/24/17 12:40 97.3 F L 55 L 18 156/88 H 95 06/24/17 04:00 97.3 F L 63 16 117/77 95 Weight Weight 291 lb 3.69 oz I&O: 06/23/17 06/24/17 06/25/17 06:59 06:59 06:59 Intake Total 240 760 Balance 240 760 Result Diagrams: 06/24/17 05:33 06/24/17 05:33 Additional Labs: Accuchecks 06/24/17 06/24/17 06/23/17 13:54 05:27 20:46 POC Glucose 136 H 100 107 06/23/17 16:34 POC Glucose 139 H Phys Exam - Physical Examination Constitutional: NAD Respiratory: no wheezing, no rhonchi Cardiovascular: RRR, no rub Gastrointestinal: soft, positive bowel sounds Musculoskeletal: no edema Dx/Plan (1) Chest pain Code(s): R07.9 - CHEST PAIN, UNSPECIFIED Status: Acute Comment: Stress test neg (2) Cholelithiasis Code(s): K80.20 - CALCULUS OF GALLBLADDER W/O CHOLECYSTITIS W/O OBSTRUCTION Status: Acute Qualifiers: Cholecystitis presence: with cholecystitis (3) Elevated LFTs Code(s): R79.89 - OTHER SPECIFIED ABNORMAL FINDINGS OF BLOOD CHEMISTRY Status : Acute (4) SVT (supraventricular tachycardia) Code(s): I47.1 - SUPRAVENTRICULAR TACHYCARDIA Status: Acute Comment: Asymptomatic (5) Acute kidney injury Code(s): N17.9 - ACUTE KIDNEY FAILURE, UNSPECIFIED Status: Acute - Plan cont current plan of care, DVT proph w/SCDs * DC later today if BP better. * Pain controlled * Cont betablockers * One dose of Amlodipine * Add PRN BP meds * Cardio/GI/Surg following * Cont to monitor Review of Systems - Review of Systems Respiratory: negative: Cough, Dry, Shortness of Breath, Hemoptysis, SOB with Excertion, Pleuritic Pain, Sputum, Wheezing Cardiovascular: negative: Chest Pain, Palpitations, Orthopnea, Paroxysmal Noc. Dyspnea, Edema, Light Headedness, Other - Medications/Allergies Allergies/Adverse Reactions: Allergies Allergy/AdvReac Type Severity Reaction Status Date / Time Penicillins Allergy Verified 06/20/17 21:13 Medications: Current Medications Hydrocodone Bitart/Acetaminophen ([place]ondo 7.5/325) 1 tab PO Q4H PRN PRN Reason: Pain 1-5 Hydrocodone Bitart/Acetaminophen (Hondo 7.5/325) 2 tab PO Q4H PRN PRN Reason: Pain 6-10 Amlodipine Besylate (Norvasc) 5 mg PO NOW [facility] Stop: 06/24/17 16:00 Last Admin: 06/24/17 14:34 Dose: 5 mg Aspirin (Aspirin) 325 mg PO DAILY [facility] Last Admin: 06/24/17 10:50 Dose: Not Given Bisacodyl (Dulcolax) 10 mg OH Q24H PRN PRN Reason: Constipation Calcium Carbonate (Tums) 1,000 mg PO Q4H PRN PRN Reason: Heartburn or Indigestion Carvedilol (Coreg) 3.125 mg PO BID [facility] Last Admin: 06/24/17 05:46 Dose: 3.125 mg Dextrose/Water (Dextrose 50%) 25 gm SLOW IVP PRN PRN PRN Reason: Hypoglycemia Famotidine (Pepcid) 20 mg PO BID [facility] Last Admin: 06/24/17 10:51 Dose: Not Given Fentanyl (Pacu-Sublimaze) 50 mcg SLOW IVP Q10MIN PRN PRN Reason: Moderate to Severe Pain (6-10) Stop: 06/24/17 15:11 Glucagon (Glucagon) 1 mg IM PRN PRN PRN Reason: Hypoglycemia Hydralazine HCl (Apresoline) 10 mg SLOW IVP Q4H PRN PRN Reason: SBP Greater Than 180 Last Admin: 06/22/17 14:20 Dose: 10 mg Hydralazine HCl (Apresoline) 5 mg SLOW IVP Q4H PRN PRN Reason: SBP GREATER THAN 160 Hydralazine HCl (Apresoline) 10 mg PO Q6H PRN PRN Reason: SBP GREATER THAN 160 Hydromorphone HCl (Pacu-Dilaudid) 0.5 mg SLOW IVP Q10MIN PRN PRN Reason: Moderate to Severe Pain (6-10) Stop: 06/24/17 15:11 Dextrose/Water (D5w) 1,000 mls @ 0 mls/hr IV .Q0M PRN; As Directed PRN Reason: Hypoglycemia Sodium Chloride (Normal Saline 0.9%) 1,000 mls @ 75 mls/hr IV .[id number] [facility] Last Admin: 06/24/17 13:00 Dose: 1,000 mls Ibuprofen (Motrin) 600 mg PO Q6H PRN PRN Reason: PAIN/FEVER Last Admin: 06/23/17 21:33 Dose: 600 mg Insulin Human Lispro (Humalog) 0 units SC .MODERATE SLIDING SC PRN PRN Reason: Moderate Correctional Scale Levothyroxine Sodium (Synthroid) 200 mcg PO 0600 [facility] Last Admin: 06/24/17 05:46 Dose: 200 mcg Meperidine HCl (Pacu-Demerol) 12.5 mg SLOW IVP ONE PRN PRN Reason: Shivering Stop: 06/24/17 15:12 Morphine Sulfate (Morphine Sulfate) 1 mg SLOW IVP Q1H PRN PRN Reason: PAIN 1-3 Morphine Sulfate (Morphine Sulfate) 2 mg SLOW IVP Q1H PRN PRN Reason: PAIN 4-6 Morphine Sulfate (Morphine Sulfate) 4 mg SLOW IVP Q1H PRN PRN Reason: PAIN 7-10 Ondansetron HCl (Pacu-Zofran) 4 mg IVP ONE PRN PRN Reason: Nausea/Vomiting Stop: 06/24/17 15:11 Ondansetron HCl (Zofran) 4 mg SLOW IVP Q4H PRN PRN Reason: Nausea/Vomiting Promethazine HCl (Pacu-Phenergan) 6.25 mg SLOW IVP ONE PRN PRN Reason: Nausea/Vomiting Stop: 06/24/17 15:11 Promethazine HCl (Pacu-Phenergan) 6.25 mg IM ONE PRN PRN Reason: Nausea/Vomiting Stop: 06/24/17 15:11 Promethazine HCl (Phenergan) 12.5 mg PO Q4H PRN PRN Reason: Nausea 1ST LINE Promethazine HCl (Phenergan) 25 mg PO Q4H PRN PRN Reason: Nausea 2ND LINE Sodium Chloride (Flush - Normal Saline) 10 ml IVF PRN PRN PRN Reason: Saline Flush Last Admin: 06/20/17 21:00 Dose: 10 ml
[2017-06-24] MEDS: HYDROcodone/Acetaminophen 7.5/325 mg Tablet PO PRN (17:01)
--- NOTE | 2017-06-24 17:37 | RAD ---
INTRAOPERATIVE CHOLANGIOGRAM: Date: 06/24/17 HISTORY: Cholelithiasis. FINDINGS/IMPRESSION: Single spot fluoroscopic image during an intraoperative cholangiogram demonstrates opacification of the common duct, main hepatic ducts and some of the branches, without filling defects. Contrast in t he second portion of the duodenum. Surgical instruments are in the field of view. POS: LANA
[2017-06-24] MEDS: hydrALAZINE 10 MG TAB PO PRN (22:16)
[2017-06-25] MEDS: Levothyroxine Sodium 100 MCG TAB PO SCH (06:05)
--- NOTE | 2017-06-25 06:25 | OP ---
PROCEDURE: Repair of umbilical hernia, laparoscopic cholecystectomy, and intraoperative cholangiogr am. DATE OF SURGERY: 06/24/2017 PREOPERATIVE DIAGNOSES: Cholelithiasis and cholecystitis. POSTOPERATIVE DIAGNOSES: Cholelithiasis and cholecystitis. HISTORY: Mr. White is a 61-year-old man who presented to the emergency room with chest pain. He wa s found to have a negative cardiac workup, but an abnormal gallbladder on ultrasound with wall thick ening and a stone in the neck and elevated LFTs. His LFTs came down and his pain resolved. He neve r had any tenderness over his abdomen on my exam, but it was felt that his symptoms were most likely due to his gallbladder and recommendation was made to proceed with laparoscopic cholecystectomy. Dayna tomlinson was initially scheduled for 06/23, but the surgery was delayed due to an episode of supraventricul ar tachycardia; however, Cardiology has again cleared him to proceed and the tachycardic episodes th at he was quite transient in nature. His LFTs today are down further and it is felt that they are m ost likely elevated due to his cholecystitis; however cholangiogram was recommended to exclude bile duct obstruction. PROCEDURE IN DETAIL: After informed consent was obtained, the patient was taken to the operating ro om. He was placed in supine position and general endotracheal anesthesia was administered. He was prepped and draped in standard sterile fashion and local anesthesia infused to the skin and subcutan eous tissues at the level of the umbilicus. The patient was noted to have an umbilical hernia which at first appeared small but as it was dissected out, it became clear that it was quite large, becau se of the patient's body habitus, the umbilical incision was extended and the umbilical hernia disse cted free down to its base, which was a quite small defect in the fascia through which a large amoun t of omentum had protruded. The hernia sac was opened and the omentum was unable to be reduced back through the small hole, so the omentum was ligated and divided at the level of the neck of the ailyn ia and the omental stump pushed back into the abdomen. A 10 mL trocar was then placed through the f ascial defect and carbon dioxide gas insufflated to an intra-abdominal pressure of 15, which the pat ient tolerated well. He was positioned and local anesthesia was infused to the skin and subcutaneou s tissues at the epigastric, right upper quadrant, and right lateral abdominal sites. Trocars were placed and the gallbladder identified. This was very distended and thick walled and was unable to b e grasped. Therefore, the gallbladder was aspirated over 150 mL of clear, colorless bile were aspir ated from the gallbladder consistent with a hydropic gallbladder. Following this, the fundus of the gallbladder was able to be grasped and drawn over the liver. The patient had extensive omental adh esions to the lower half of the gallbladder and the duodenum was adherent as well; however, these ad hesions were able to be taken down through the avascular plane using blunt dissection as they appear ed acute to subacute in nature. However, due to the inflamed nature of the tissues which had been a dherent to the gallbladder and the stiff thickened nature of the gallbladder visualization of the ne ck of the gallbladder was very difficult. Therefore, a 30 degree 5 mm port was obtained and an travon tional dissecting trocar placed in the left upper quadrant. The camera was moved to this location s [place] it was very difficult to advance the camera far enough through the umbilical location due to th e patient's body habitus. A triangle retractor was then placed through the umbilical trocar and use d to retract the duodenum and fatty tissue and omentum down out of the operative field to obtain bet ter exposure of the neck of the gallbladder. The infundibulum was grasped with some difficulty due to the thickened nature of the tissues and an impacted stone in the neck of the gallbladder. The se wilda was stripped inferiorly with difficulty due to severe fibrosis at this level. The patient appe ared to have chronic severe inflammation based on the tissues at this level. Dissection was also ap peared somewhat by a very enlarged node of Calot, which was somewhat difficult to mobilize superiorl y. However, the cystic duct was able to be meticulously dissected free circumferentially and a clip placed across the duct at the level of the neck. An incision was made inferior to this and a chola ngiogram catheter advanced into the bile duct. A cholangiogram was obtained which showed an adequat e length of cystic duct and normal filling of the common bile duct with free flow into the duodenum without evidence of obstruction. There was normal retrograde flow up into the common hepatic duct a nd the right and left hepatic ducts as well. The cholangiogram catheter was removed, and the cystic duct clipped and divided below the incision in the cystic duct. Due to the thickened fibrotic natu re of the cystic duct, it was unclear whether the clips were completely across the cystic duct. The refore, the decision was made to place an Endoloop inferior to the clips. This was done with excell ent technical result. The liver was then retracted superiorly and dissection carried out close to t he wall of the gallbladder. The cystic artery was identified, clipped, and divided between clips, a nd the gallbladder was able to be dissected free of the gallbladder bed using hook electrocautery. This was done with difficulty due to the very fibrotic nature of the gallbladder, the gallbladder wa s able to be removed from the gallbladder bed and placed into an EndoCatch bag. The gallbladder was so large that it basically filled the EndoCatch bag, but the bag was able to be closed and part of the gallbladder wall drawn out through the umbilical incision. The gallbladder was opened within th e EndoCatch bag and the large impacted stone crushed and removed. Following this, the gallbladder w as able to be removed through the umbilical incision with difficulty due to the thickened nature of the gallbladder wall. The umbilical trocar was then replaced and the operative site irrigated to cl ear. Hemostasis was verified. The left upper quadrant epigastric, right upper quadrant, and right lateral trocars removed under direct vision of the laparoscope and hemostasis verified. The umbilic al trocar was then removed and carbon dioxide gas allowed to desufflate. The hernia sac was resecte d and discarded. The fascia was closed with interrupted [id number] Ethibond suture with excell ent technical result. The umbilical incision was copiously irrigated and hemostasis verified. The subcutaneous tissues were reapproximated with 3-0 Vicryl sutures following which the skin incision w as closed with 4-0 subcuticular Monocryl sutures. The other laparoscopic incisions were likewise cl osed with 4-0 subcuticular Monocryl sutures. The Dermabond was placed to all incisions and allowed to dry. Once the Dermabond was dry, a cotton ball and Tegaderm compression dressing was placed at t he umbilicus. The patient was extubated and taken to the recovery room in good condition. Estimate d blood loss was 100 mL. There were no complications. SPECIMEN: Gallbladder and contents.
[2017-06-25 06:49] LABS: #Lymphocytes 1.3 thou/uL (1.20-3.40); #Neutrophils 5.3 thou/uL (1.40-6.50); %Basophils 0.1 % (0.0-1.0); %Eosinophils 0.1 % (0.0-10.0); %Lymphocytes 16.8 % (21.0-51.0); %Monocytes 12.8 % (0.0-10.0); Hematocrit 35.1 % (42.0-52.0); Mean Platelet Volume 6.7 fL (7.4-10.4); Red Blood Cell (RBC) Count 4.06 mill/uL (4.70-6.10); White Blood Cell (WBC) Count 7.6 thou/uL (4.8-10.8)
[2017-06-25 07:00] LABS: ALT (SGPT) 84 U/L (8-55); AST (SGOT) 47 U/L (5-34); Alkaline Phosphatase 191 U/L (40-150); Anion Gap 10 mmol/L (10-20); BUN (Urea Nitrogen) 23 mg/dL (8.4-25.7); Calc. Creatinine Clearance 95 mL/min (70-130); Calcium 9.6 mg/dL (7.8-10.44); Carbon Dioxide 27 mmol/L (23-31); Chloride 100 mmol/L (98-107); Estimated GFR-MDRD 48; Globulin 3.3 g/dL (2.4-3.5); Magnesium 1.6 mg/dL (1.6-2.6); Protein, Total 6.4 g/dL (5.8-8.1)
[2017-06-25] MEDS: Aspirin 325 MG TAB PO SCH (09:31)
[2017-06-25] MEDS: Carvedilol 3.125 MG TAB PO SCH (09:31)
[2017-06-25] MEDS: Famotidine 20 MG TAB PO SCH (09:32)
[2017-06-25] MEDS: hydrALAZINE 10 MG TAB PO PRN (11:40)
[2017-06-25] MEDS ORDERED: Labetalol HCl 100 MG/20 ML VIAL SLOW IVP PRN (13:55)
[2017-06-25] MEDS ORDERED: Labetalol HCl 100 MG/20 ML VIAL SLOW IVP SCH (14:15)
[2017-06-25 16:01] VITALS: TEMP 98.2
--- NOTE | 2017-06-25 16:22 | DIS ---
DATE OF ADMISSION: 06/20/2017 DATE OF DISCHARGE: 06/25/2017 DISCHARGE DISPOSITION: Home. FOLLOWUP: 1. Follow up with primary care physician, Dr. Tami Morataya in 1 week. 2. Follow up with Dr. Springer, Cardiology in 1 week. 3. Follow up with Dr. Hdez in one week. INPATIENT CONSULTANTS: 1. Cardiology, Dr. Springer. 2. General Surgery, Dr. Hdez. 3. GI, Dr. Perla. The patient was seen and examined on the day of discharge. Denies any new complaints. No chest matias n, shortness of breath, palpitations. ALLERGIES: The patient is allergic to PENICILLIN. DISCHARGE MEDICATIONS: Aspirin 325 mg daily, carvedilol 6.25 mg b.i.d., fish oil 1000 mg b.i.d., La six 80 mg daily, levothyroxine 200 mcg daily, levothyroxine 12.5 mcg daily, lovastatin 20 mg daily, lutein 20 mg at bedtime, potassium chloride 10 mEq b.i.d., multivitamin 1 tablet daily. Resume metf ormin once creatinine has improved. BRIEF HOSPITAL COURSE: Patient is a 61-year-old white male with diabetes mellitus type 2, hypertens ion, and obesity who presented to the hospital with chest discomfort. Please refer to the history a nd physical dated 06/20/2017 for further details. The patient was admitted to the hospital with diagnosis of chest discomfort, rule out acute coronary syndrome. His serial cardiac enzymes were negative. His stress test showed small volume scar of t he inferior wall and the septum with dyskinesia. Patient was evaluated by Cardiology and was conser vatively managed. Due to persistent elevation of LFTs, right upper quadrant ultrasound was done that showed large calc ulus in the neck of the gallbladder measuring 2.3 cm with associated gallbladder wall thickening. T he patient was evaluated by Gastroenterology, Dr. Perla as well as General Surgery, Dr. Hdez. Laparoscopic cholecystectomy was performed on 06/24/2017. Postoperatively, he did well except for some issues with elevated blood pressure. His blood pressure at the time of discharge is in systol ic 140s. He has been cleared by consultants for discharge. Patient also developed short run of supraventricular tachycardia. Cardiology recommended to continu e beta blockers. He will follow with Cardiology as outpatient. DIAGNOSTIC TESTS: Echocardiogram showed normal left ventricular ejection fraction. The study was t echnically difficult. Grade I/III diastolic dysfunction with mild mitral regurgitation and mild tri cuspid regurgitation. FINAL DIAGNOSES: 1. Chest discomfort, acute coronary syndrome ruled out. 2. Negative Cardiolite stress test. 3. Abnormal LFTs. His maximum bilirubin was 4.4. On the day of discharge, his bilirubin is 1.0 4. Chronic kidney disease stage 3. His creatinine on admission was 1.57. At the day of discharge, it is 1.48. His creatinine yesterday was 1.8. For this reason, metformin is held. 5. Hypertension. 6. Cholecystitis/cholelithiasis, status post laparoscopic cholecystectomy. 7. Asymptomatic supraventricular tachycardia on beta-blockers. 8. Chronic diastolic heart failure, compensated. 9. Diabetes mellitus type 2. 10. Hypothyroidism. 11. Hyperlipidemia. 12. Obesity with a body mass index 39.5. Plan of care was discussed with the patient. He stated understanding.
[2017-06-25] MEDS ORDERED: Carvedilol 6.25 MG TAB PO SCH (17:00)
[2017-06-25] MEDS: HYDROcodone/Acetaminophen 7.5/325 mg Tablet PO PRN (17:19)
[2017-06-25 17:20] VITALS: BP 148/87
[2017-06-25] MEDS: Sodium Chloride 0.9% 1,000 ML IV SCH (17:42)
== END 2017-06-25 18:05 | disposition home or self-care (01) | DRG 418 ==
LOC: ERS 16:50 → OBSVTOIN 18:30 → 2SW 18:30 → SURG B 06-23 15:47
PROVIDERS: ADMIT Internal Medicine; ATTEND Internal Medicine
PROC: 0FT44ZZ Resection of Gallbladder, Percutaneous Endoscopic Approach (ICD-10-PCS; principal; 2017-06-24)
PROC: 0WQF0ZZ Repair Abdominal Wall, Open Approach (ICD-10-PCS; 2017-06-24)
PROC: BF101ZZ Fluoroscopy of Bile Ducts using Low Osmolar Contrast (ICD-10-PCS; 2017-06-24)
DX: K80.00 Calculus of gallbladder with acute cholecystitis without obstruction (principal); I47.1 Supraventricular tachycardia; E11.22 Type 2 diabetes mellitus with diabetic chronic kidney disease; N17.9 Acute kidney failure, unspecified; I13.0 Hypertensive heart and chronic kidney disease with heart failure and stage 1 through stage 4 chronic kidney disease, or unspecified chronic kidney disease; I50.32 Chronic diastolic (congestive) heart failure; N18.3 Chronic kidney disease, stage 3 (moderate); E87.1 Hypo-osmolality and hyponatremia; Z68.42 Body mass index [BMI] 45.0-49.9, adult; Z71.3 Dietary counseling and surveillance; Z88.0 Allergy status to penicillin; E03.9 Hypothyroidism, unspecified; K42.9 Umbilical hernia without obstruction or gangrene; E78.5 Hyperlipidemia, unspecified; E66.01 Morbid (severe) obesity due to excess calories
CPT/HCPCS: 36415; 36416; 47532; 71010; 74000; 76700; 78452; 80053; 80074; 81003; 81015; 82550; 82553; 83690; 83735; 84484; 85025; 87040; 88304; 93005; 93017; 93306; 94760; A9500; J0153; J0360; J1100; J1610; J1885; J1956; J2001; J2405; J2704; J3010; J3475; J3480; J7050; Q0162; Q9961; S0020

== ENCOUNTER 2019-05-30 08:30 | Emergency (ER) | payer MEDICARE ==
--- NOTE | 2019-05-30 09:09 | RAD ---
Right wrist 3 views HISTORY: Right wrist pain. FINDINGS: Scaphoid waist and ulnar styloid are intact. Joint spaces preserved. No acute fracture, dis location, or aggressive osseous erosions. Mild osteoarthritic changes of the first carpometacarpal joint with a small well-corticated fragmented osteophyte along the medial margin of the joint. IMPRESSION: No acute osseous abnormalities are demonstrated.
[2019-05-30] MEDS ORDERED: Acetaminophen 325 MG Suppository ONE (09:34)
[2019-05-30] MEDS ORDERED: Acetaminophen 325 MG TAB ONE (09:36)
== END 2019-05-30 10:10 | disposition home or self-care (01) ==
LOC: ERS 08:30
DX: M25.531 Pain in right wrist (principal); I11.0 Hypertensive heart disease with heart failure; I50.9 Heart failure, unspecified; E11.9 Type 2 diabetes mellitus without complications; E66.9 Obesity, unspecified; Z79.899 Other long term (current) drug therapy; Z79.82 Long term (current) use of aspirin

== ENCOUNTER 2021-07-07 08:31 | Emergency (ER) | payer MEDICARE | END 2021-07-07 09:05 | disposition home or self-care (01) | LOC: ERS 08:31 | DX: M19.071 Primary osteoarthritis, right ankle and foot (principal); E66.01 Morbid (severe) obesity due to excess calories; E11.9 Type 2 diabetes mellitus without complications; I11.0 Hypertensive heart disease with heart failure; I50.9 Heart failure, unspecified ==